=== PATIENT | female | born 1990 | race Caucasian/White ===

== ENCOUNTER 2017-12-09 12:27 | Emergency (ER) | payer MEDICAID, OTHER ==
[2017-12-09] MEDS ORDERED: CLEOCIN 150 MG CAPSULE PO ONE (12:35)
[2017-12-09] MEDS ORDERED: XYLOCAINE HCl Viscous MM ONE (12:37)
[2017-12-09] MEDS ORDERED: CLEOCIN 150 MG CAPSULE ONE (12:39)
[2017-12-09] MEDS ORDERED: XYLOCAINE HCl Viscous ONE (12:39)
--- NOTE | 2017-12-09 12:39 | ERPHSYRPT ---
- History of Present Illness Time Seen by Provider: 12/09/17 12:37 Source: patient Patient Subjective Stated Complaint: pt reports pain and swelling to left side of mouth-states she thinks she has an infected tooth Triage Nursing Assessment: pt pink warm and [id number] swelling noted- resp easy and nonlabored Physician History: mild to mod dental pain today, ache, constant throbbing, no fever, speech fluent , no injury, no drooling Allergies/Adverse Reactions: Sulfa (Sulfonamide Antibiotics) Allergy (Mild, Verified 12/09/17 12:36) Home Medications: Paroxetine HCl [Paxil] 15 mg PO DAILY 12/09/17 [History] Hx Tetanus, Diphtheria Vaccination/Date Given: No Hx Influenza Vaccination/Date Given: Yes Hx Pneumococcal Vaccination/Date Given: No Immunizations Up to Date: Yes - Review of Systems Constitutional: No Fever Eyes: No Eye Redness Ears, Nose, & Throat: No Throat Swelling Respiratory: No Dyspnea Abdominal/Gastrointestinal: No Vomiting Skin: No Rash Neurological: No Dizziness - Past Medical History Pertinent Past Medical History: Yes Psycho-Social History: Depression - Past Surgical History Past Surgical History: No - Social History Smoking Status: Current every day smoker How long have you smoked: yrs Exposure to second hand smoke: Yes Drug Use: none Patient Lives Alone: No - Female History Hx Last Menstrual Period: iud Hx Now: No - Nursing Vital Signs Nursing Vital Signs: Initial Vital Signs Temperature 97.9 F 12/09/17 12:32 Pulse Rate 77 12/09/17 12:32 Respiratory Rate 18 12/09/17 12:32 Blood Pressure 140/88 12/09/17 12:32 O2 Sat by Pulse Oximetry 97 12/09/17 12:32 Pain Scale Pain Intensity 7 - Physical Exam General Appearance: no apparent distress Eye Exam: eyes nml inspection Ears, Nose, Throat Exam: moist mucous membranes, other (tender lower left molar , no trismus, no fluc mass, +gingival erythema) Neck Exam: normal inspection, non-tender, supple, full range of motion, No meningismus Respiratory Exam: No respiratory distress Neurologic Exam: alert, oriented x 3, cooperative, normal mood/affect Skin Exam: warm, dry SpO2 Interpretation: normal SpO2: 97 Oxygen Delivery: Room Air - Course Nursing assessment & vital signs reviewed: Yes Ordered Tests: Medication Summary Discontinued Medications Generic Name Dose Route Start Last Admin Trade Name Freq PRN Reason Stop Dose Admin Clindamycin HCl 150 mg 12/09/17 12:35 12/09/17 12:40 Cleocin 150 Mg Capsule PO 12/09/17 12:36 150 mg STAT ONE Administration Clindamycin HCl Confirm 12/09/17 12:39 Cleocin 150 Mg Capsule Administered 12/09/17 12:40 Dose 150 mg .ROUTE .STK-MED ONE Lidocaine HCl 20 ml 12/09/17 12:37 12/09/17 12:40 Xylocaine Hcl Viscous * MM 12/09/17 12:38 20 ml PRN ONE Administration Lidocaine HCl Confirm 12/09/17 12:39 Xylocaine Hcl Viscous * Administered 12/09/17 12:40 Dose 20 ml .ROUTE .STK-MED ONE - Progress Progress: improved Progress Note: 12/09/17 12:56 see a dentist Counseled pt/family regarding: diagnosis, need for follow-up - Departure Time of Disposition: 12:57 Departure Disposition: Home Clinical Impression: Dental infection Condition: Stable Critical Care Time: No Referrals: PEGGY DUVAL MD [Primary Care Provider] - Instructions: Dental Pain (DC) Prescriptions: Clindamycin HCl [Cleocin HCl] 150 mg PO QID 7 Days #28 capsule Lidocaine HCl 2% Jelly [Xylocaine 2% JELLY] 0 ml DENTAL Q4-6HPRN PRN 4 Days #1 jel PRN Reason: Moderate To Severe Pain
[2017-12-09 13:21] VITALS: BP 132/60; PULSE 88; O2SAT 99
== END 2017-12-09 13:20 | disposition home or self-care (01) ==
LOC: ED 12:27
DX: K04.7 Periapical abscess without sinus (principal)
CPT/HCPCS: 99283; A9270-GY

== ENCOUNTER 2022-05-06 10:22 | Emergency (ER) | payer OTHER ==
[2022-05-06 11:07] VITALS: BP 149/55; PULSE 116; O2SAT 98
[2022-05-06 11:34] LABS: Basophil (Absolute #) 0.02 x10^3/uL (0-0.4); Eosinophil % 0.2 % (0.00-5.0); Eosinophil (Absolute #) 0.02 x10^3/uL (0-0.5); Hematocrit 40.4 % (35-47); Hemoglobin 13.2 g/dL (12.0-16.0); Lymphocyte (Absolute #) 1.03 x10^3/uL (1.0-4.6); Lymphocytes % 8.8 % (24.0-44.0); Mean Cell Volume 88.4 fL (78-100); Mean Corpuscular Hemoglobin 28.9 pg (26-32); Mean Corpuscular Hgb Concent. 32.7 g/dL (32-36); Mean Platelet Volume 8.7 fL (7.5-11.0); Monocyte (Absolute #) 0.51 x10^3/uL (0.0-1.3); Monocytes % 4.4 % (0.0-12.0); Neutrophil % 86.1 % (36.0-66.0); Platelet Count 413 x10^3/uL (150-450); Red Blood Count 4.57 x10^6/uL (4.1-5.4); Red Cell Distribution Width 12.6 % (11.5-14.0); White Blood Count 11.7 x10^3/uL (4.0-10.5)
--- NOTE | 2022-05-06 11:40 | XRAY ---
Indication: Erythema and swelling following fall. Comparison: None 3 nonweightbearing views left foot demonstrates tiny posterior/small plantar heel spurs and tiny cuboid accessory ossicles. No other bony, articular, or soft tissue abnormalities.
[2022-05-06] MEDS ORDERED: MOTRIN 600 MG PO ONE (12:26)
[2022-05-06] MEDS ORDERED: MOTRIN 600 MG ONE (12:26)
--- NOTE | 2022-05-06 12:29 | ERPHSYRPT ---
- History of Present Illness Time Seen by Provider: 05/06/22 11:05 Source: patient Exam Limitations: no limitations Patient Subjective Stated Complaint: pt here for pain to left foot for 2 weeks now she tripped and fell Triage Nursing Assessment: pt alert arrived per wc, resp easy, face mask in place, has swelling and redness to left foot, hot to touch Method of Injury: twisted Occurred: other (2 weeks ago) Quality: constant Severity of Pain-Max: moderate Severity of Pain-Current: moderate Lower Extremities Pain: foot: left Modifying Factors: Improves With: nothing Associated Symptoms: other (She has pain with weightbearing or palpation or movement) Allergies/Adverse Reactions: Sulfa (Sulfonamide Antibiotics) Allergy (Mild, Verified 12/09/17 12:36) Home Medications: PARoxetine HCL [Paxil] 15 mg PO DAILY 12/09/17 [History] Hx Tetanus, Diphtheria Vaccination/Date Given: No Hx Influenza Vaccination/Date Given: No Hx Pneumococcal Vaccination/Date Given: No Immunizations Up to Date: Yes Travel Risk - International Travel Have you traveled outside of the country in past 3 weeks: No - Coronavirus Screening Are you exhibiting any of the following symptoms?: No - Vaccine Status Have you recieved a Covid-19 vaccination: No - Review of Systems Constitutional: No Fever, No Chills Eyes: No Symptoms Ears, Nose, & Throat: No Symptoms Respiratory: No Cough, No Dyspnea Cardiac: No Chest Pain, No Edema, No Syncope Abdominal/Gastrointestinal: No Abdominal Pain, No Nausea, No Vomiting, No Diarrhea Genitourinary Symptoms: No Dysuria Musculoskeletal: Joint Redness, Joint Pain, Joint Swelling, No Back Pain, No Neck Pain Skin: No Rash Neurological: No Dizziness, No Focal Weakness, No Sensory Changes Psychological: No Symptoms Endocrine: No Symptoms All Other Systems: Reviewed and Negative - Past Medical History Pertinent Past Medical History: Yes Psycho-Social History: Depression - Past Surgical History Past Surgical History: No - Social History Smoking Status: Current every day smoker How long have you smoked: yrs Exposure to second hand smoke: Yes Drug Use: none Patient Lives Alone: No - Female History Hx Last Menstrual Period: unsure Hx Now: No - Nursing Vital Signs Nursing Vital Signs: Initial Vital Signs Temperature 97.1 F 05/06/22 11:00 Pulse Rate 116 H 05/06/22 11:00 Respiratory Rate 16 05/06/22 11:00 Blood Pressure 149/55 05/06/22 11:00 O2 Sat by Pulse Oximetry 98 05/06/22 11:00 Pain Scale Pain Intensity 8 - Physical Exam General Appearance: mild distress, alert Eyes, Ears, Nose, Throat Exam: moist mucous membranes Neck Exam: non-tender, supple Cardiovascular/Respiratory Exam: chest non-tender, normal breath sounds, regular rate/rhythm, no respiratory distress Gastrointestinal/Abdominal Exam: non-tender, guarding Back Exam: normal inspection, No vertebral tenderness Hips Exam: bilateral: non-tender, normal inspection, normal range of motion Legs Exam: bilateral leg: non-tender, normal inspection, normal range of motion Knees Exam: bilateral knee: non-tender, normal inspection, normal range of motion Ankle Exam: bilateral ankle: non-tender, normal inspection, normal range of motion Foot Exam: left foot: bone tenderness, limited range of motion, pain, soft tissue tenderness, swelling Neuro/Tendon Exam: normal sensation, normal motor functions Mental Status Exam: alert, oriented x 3, cooperative Skin Exam: normal color, warm, dry SpO2 Interpretation: normal SpO2: 98 O2 Delivery: Room Air - Course Nursing assessment & vital signs reviewed: Yes - Radiology Exams Left Foot X-ray Interpretation: Reviewed by me Ordered Tests: Active Orders 24 hr Category Date Time Status FOOT (MINIMUM 3 VIEWS) Stat Exams 05/06/22 11:20 Completed CBC W DIFF Stat Lab 05/06/22 11:25 Completed Uric Acid Stat Lab 05/06/22 11:25 Completed Lab/Rad Data: Laboratory Result Diagrams 05/06/22 11:25 Laboratory Results 05/06/22 05/06/22 Range/Units 11:25 11:25 WBC 11.7 H (4.0-10.5) x10^3/uL RBC 4.57 (4.1-5.4) x10^6/uL Hgb 13.2 (12.0-16.0) g/dL Hct 40.4 (35-47) % MCV 88.4 (78-100) fL MCH 28.9 (26-32) pg MCHC 32.7 (32-36) g/dL RDW 12.6 (11.5-14.0) % Plt Count 413 (150-450) x10^3/uL MPV 8.7 (7.5-11.0) fL Gran % 86.1 H (36.0-66.0) % Immature Gran % (Auto) 0.3 (0.00-0.4) % Nucleat RBC Rel Count 0.0 (0.00-0.1) % Eos # (Auto) 0.02 (0-0.5) x10^3/uL Immature Gran # (Auto) 0.04 H (0.00-0.03) x10^3u/L Absolute Lymphs (auto) 1.03 (1.0-4.6) x10^3/uL Absolute Monos (auto) 0.51 (0.0-1.3) x10^3/uL Absolute Nucleated RBC 0.00 (0.00-0.01) x10^3u/L Lymphocytes % 8.8 L (24.0-44.0) % Monocytes % 4.4 (0.0-12.0) % Eosinophils % 0.2 (0.00-5.0) % Basophils % 0.2 (0.0-0.4) % Absolute Granulocytes 10.10 H (1.4-6.9) x10^3/uL Basophils # 0.02 (0-0.4) x10^3/uL Uric Acid 4.1 (2.6-6.0) mg/dL - Progress Progress: unchanged - Departure Departure Disposition: Home Clinical Impression: Acute gouty arthritis Condition: Stable Critical Care Time: No Referrals: PEGGY DUVAL MD [Primary Care Provider] - Follow up/PCP as directed Instructions: Gout (DC) Prescriptions: Prednisone 10 mg [Deltasone 10 mg] 20 mg PO BID #12 tablet Diclofenac Sodium 50 mg [Voltaren 50 mg] 50 mg PO TID 10 Days #30 tablet
[2022-05-06] MEDS ORDERED: solu-MEDROL 125 MG, Sterile H2O 10 ml 2 ML IM ONE ×2 (12:30)
[2022-05-06] MEDS ORDERED: Sterile H2O 10 ml IJ ONE (12:35)
[2022-05-06] MEDS ORDERED: solu-MEDROL ONE (12:35)
== END 2022-05-06 13:00 | disposition home or self-care (01) ==
LOC: ED 10:22
DX: M10.9 Gout, unspecified (principal); M79.672 Pain in left foot; Z79.899 Other long term (current) drug therapy; Z28.310 Unvaccinated for COVID-19; Z72.0 Tobacco use; Z79.52 Long term (current) use of systemic steroids
CPT/HCPCS: 36415; 73630; 84550; 85025; 86140; 96372; 99283; J2930; A9270-GY

== ENCOUNTER 2024-03-26 06:58 | Emergency (ER) | payer OTHER ==
[2024-03-26 07:18] VITALS: TEMP 99.5
[2024-03-26] MEDS ORDERED: Sodium Chloride 0.9% 1000 ML 1,000 ML ONE (07:44)
[2024-03-26] MEDS ORDERED: TYLENOL 325 MG ONE (07:44)
[2024-03-26] MEDS ORDERED: ROCEPHIN 1 GM / 100 ML NaCl 1 GM/100 ML IVPB IV ONE (07:44)
[2024-03-26] MEDS: Sodium Chloride 0.9% 1000 ML 1,000 ML IV STA (07:45)
[2024-03-26] MEDS: TYLENOL 325 MG PO STA (07:45)
[2024-03-26] MEDS: ROCEPHIN 1 GM / 100 ML NaCl 1 GM/100 ML IVPB IV ONE (07:45)
[2024-03-26 08:02] LABS: Absolute Neutrophil Ct (ANC) 8.38 x10^3/uL (1.56-6.13); BASOPHIL % 0.3 % (0.1-1.2); Basophil (Absolute #) 0.03 x10^3/uL (0.01-0.08); Eosinophil % 3.5 % (0.7-5.8); Eosinophil (Absolute #) 0.32 x10^3/uL (0.04-0.36); Hematocrit 44.1 % (34.1-44.9); Hemoglobin 14.8 g/dL (11.2-15.7); IMMATURE GRAN # 0.05 x10^3u/L (0.001-0.031); IMMATURE GRAN % 0.5 % (0.001-0.429); Lymphocyte (Absolute #) 0.26 x10^3/uL (1.18-3.74); Lymphocytes % 2.8 % (19.3-51.7); Mean Cell Volume 88.2 fL (79.4-94.8); Mean Corpuscular Hemoglobin 29.6 pg (25.6-32.2); Mean Corpuscular Hgb Concent. 33.6 g/dL (32.2-35.5); Mean Platelet Volume 9.4 fL (9.4-12.3); Monocyte (Absolute #) 0.22 x10^3/uL (0.24-0.86); Monocytes % 2.4 % (4.7-12.5); Neutrophil % 90.5 % (34.0-71.1); Platelet Count 260 x10^3/uL (182-369); Red Cell Distribution Width 13.7 % (11.7-14.4); White Blood Count 9.3 x10^3/uL (3.98-10.04)
--- NOTE | 2024-03-26 08:08 | ERPHSYRPT ---
- History of Present Illness Time Seen by Provider: 03/26/24 08:03 Source: patient, EMS Exam Limitations: no limitations Patient Subjective Stated Complaint: pt states she has a spider bite on her rt upper arm/axilla since yesterday. states she has also been having vaginal pain and is concerned that her iud has become displaced, has had pain for last 2 days. Triage Nursing Assessment: pt alert and oriented, answers questions approp. pt arrive per ambulance and transfers to stretcher per self with steady gait noted. respirations nonlabored. skin warm and dry. area of redness and warmth approx 12x8cm. no open areas. Physician History: Patient is a 33-year-old female without any significant past medical history cam e to the emergency room via ambulance with complaining of fever chills since yesterday. Patient also stated that she has a spider bite on her right upper arm and axilla yesterday and since then she started having complaining of not feeling well fever chills and complaining of malaise. Patient also felt that she might have some problem with her IUD which was put on to 3 weeks ago and she felt like it has slipped down. In the emergency room's show she is alert awake oriented to time place and person answer all the questions. Initially in ambulance her temperature was 101 in the emergency room it was 99 F. Patient pulse rate was in 100-110 range. Patient denies any nausea vomiting blood in the stool or urine headache Timing/Duration: yesterday Severity: moderate Associated Symptoms: chills, fever, malaise, weakness Allergies/Adverse Reactions: Sulfa (Sulfonamide Antibiotics) Allergy (Mild, Verified 03/26/24 07:17) Home Medications: Fluoxetine HCl [Prozac] 40 mg PO DAILY 03/26/24 [History] Hx Tetanus, Diphtheria Vaccination/Date Given: No Hx Influenza Vaccination/Date Given: No Hx Pneumococcal Vaccination/Date Given: No Immunizations Up to Date: No Travel Risk - International Travel Have you traveled outside of the country in past 3 weeks: No - Emerging Infectious Disease Are you exhibiting symptoms associated with any current EIDs: No - Review of Systems Constitutional: Fever, Chills, Lethargy, Malaise Eyes: No Symptoms Ears, Nose, & Throat: No Symptoms Respiratory: No Cough, No Dyspnea Cardiac: No Chest Pain, No Edema, No Syncope Abdominal/Gastrointestinal: No Abdominal Pain, No Nausea, No Vomiting, No Diarrhea Genitourinary Symptoms: No Dysuria Musculoskeletal: No Back Pain, No Neck Pain Skin: Cellulitis (right arm near axilla), No Rash Neurological: No Dizziness, No Focal Weakness, No Sensory Changes Psychological: No Symptoms Endocrine: No Symptoms All Other Systems: Reviewed and Negative - Past Medical History Pertinent Past Medical History: Yes Psycho-Social History: Depression Other Medical History: gout lt foot - Past Surgical History Past Surgical History: No Other Surgical History: mirena replacement [address] morales - Female History Hx Last Menstrual Period: mirena iud- no periods with Hx Now: No - Social History Smoking Status: Former smoker How long have you smoked: yrs Exposure to second hand smoke: Yes Drug Use: none Patient Lives Alone: No - Social Determinants of Health Do you worry about a steady place to live?: No Do you have any problems with any of the following?: No known problems In the past 12 months,have you had to go without utilities?: No Transportation Issues: No Has anyone in your support network made you feel unsafe?: No Have you or anyone in your house had to go without enough: No - Nursing Vital Signs Nursing Vital Signs: Initial Vital Signs Pulse Rate 103 H 03/26/24 07:02 Respiratory Rate 16 03/26/24 07:02 Blood Pressure 114/79 03/26/24 07:02 O2 Sat by Pulse Oximetry 97 03/26/24 07:02 Pain Scale Pain Intensity 4 - Physical Exam General Appearance: mild distress, alert Eye Exam: PERRL/EOMI, eyes nml inspection Ears, Nose, Throat Exam: normal ENT inspection, TMs normal, pharynx normal, moist mucous membranes Neck Exam: normal inspection, non-tender, supple, full range of motion Respiratory Exam: normal breath sounds, lungs clear, No respiratory distress Cardiovascular Exam: regular rate/rhythm, normal heart sounds, normal peripheral pulses Gastrointestinal/Abdomen Exam: soft, normal bowel sounds, No tenderness, No mass Pelvic Exam: normal external exam, adnexal tenderness, cervical motion tenderness, uterine tenderness, No adnexal mass, No mass, No vaginal bleeding, No vaginal discharge Rectal Exam: deferred Back Exam: normal inspection, normal range of motion, No CVA tenderness, No vertebral tenderness Extremity Exam: normal inspection, normal range of motion, pelvis stable Neurologic Exam: alert, oriented x 3, cooperative, normal mood/affect, nml cerebellar function, nml station & gait, sensation nml, No motor deficits Skin Exam: normal color, warm, dry, No rash Lymphatic Exam: No adenopathy SpO2 Interpretation: normal SpO2: 97 O2 Delivery: Room Air - Course Nursing assessment & vital signs reviewed: Yes Rhythm Strip: Sinus Tachycardia - Radiology Exams Chest X-ray Interpretation: Interpreted by me, Reviewed by me, Negative, No Pneumonia Ordered Tests: Active Orders 24 hr Category Date Time Status Airways Control Specialist STAT Care 03/26/24 07:32 Active EKG-ER Only STAT Care 03/26/24 08:02 Active IV Insertion STAT Care 03/26/24 07:32 Active Pulse Oximetry (ED) STAT Care 03/26/24 07:32 Active CHEST 2 VIEWS (PA AND LAT) Stat Exams 03/26/24 08:22 Taken BLOOD CULTURE Stat Lab 03/26/24 07:56 Received CBC W DIFF Stat Lab 03/26/24 07:20 Completed CMP Stat Lab 03/26/24 07:20 Completed CULTURE,URINE Stat Lab 03/26/24 09:29 Received Lactic Acid Stat Lab 03/26/24 07:32 Completed PROCALCITONIN Stat Lab 03/26/24 07:20 Completed UA W/RFX UR CULTURE Stat Lab 03/26/24 09:29 Completed Medication Summary Discontinued Medications Generic Name Dose Route Start Last Admin Trade Name Jefferyq PRN Reason Stop Dose Admin Acetaminophen 975 mg 03/26/24 07:32 03/26/24 07:45 Acetaminophen 325 Mg Tablet PO 03/26/24 07:33 975 mg STAT STA Administration Acetaminophen Confirm 03/26/24 07:44 Acetaminophen 325 Mg Tablet Administered 03/26/24 07:45 Dose 975 mg .ROUTE .STK-MED ONE Sodium Chloride 1,000 mls @ 999 mls/hr 03/26/24 07:32 03/26/24 08:49 Sodium Chloride 0.9% 1000 Ml IV 03/26/24 08:32 Infused .Q1H1M STA Infusion Ceftriaxone Sodium 1 gm in 100 mls @ 200 mls/hr 03/26/24 07:32 03/26/24 08:17 Rocephin 1 Gm / 100 Ml Nacl IV 03/26/24 08:01 Infused STAT ONE Infusion Sodium Chloride Confirm 03/26/24 07:44 Sodium Chloride 0.9% 1000 Ml Administered 03/26/24 07:45 Dose 1,000 mls @ ud .ROUTE .STK-MED ONE Ceftriaxone Sodium Confirm 03/26/24 07:44 Rocephin 1 Gm / 100 Ml Nacl Administered 03/26/24 07:45 Dose 1 gm in 100 mls @ ud IV .STK-MED ONE Lab/Rad Data: Laboratory Result Diagrams 03/26/24 07:20 03/26/24 07:20 Laboratory Results 03/26/24 03/26/24 03/26/24 Range/Units 09:29 08:40 07:32 WBC (3.98-10.04) x10^3/uL RBC (3.93-5.22) x10^6/uL Hgb (11.2-15.7) g/dL Hct (34.1-44.9) % MCV (79.4-94.8) fL MCH (25.6-32.2) pg MCHC (32.2-35.5) g/dL RDW (11.7-14.4) % Plt Count (182-369) x10^3/uL MPV (9.4-12.3) fL Gran % (34.0-71.1) % Immature Gran % (Auto) (0.001-0.429) % Nucleat RBC Rel Count (0.00-0.2) % Eos # (Auto) (0.04-0.36) x10^3/uL Immature Gran # (Auto) (0.001-0.031) x10^3u/L Absolute Lymphs (auto) (1.18-3.74) x10^3/uL Absolute Monos (auto) (0.24-0.86) x10^3/uL Absolute Nucleated RBC (0.00-0.012) x10^3u/L Lymphocytes % (19.3-51.7) % Monocytes % (4.7-12.5) % Eosinophils % (0.7-5.8) % Basophils % (0.1-1.2) % Absolute Granulocytes (1.56-6.13) x10^3/uL Basophils # (0.01-0.08) x10^3/uL Sodium (135-145) mmol/L Potassium (3.5-5.1) mmol/L Chloride (98-107) mmol/L Carbon Dioxide (22-30) mmol/L Anion Gap (5-15) MEQ/L BUN (7-17) mg/dL Creatinine (0.52-1.04) mg/dL Estimated GFR ML/MIN Glucose (74-106) mg/dL Lactic Acid 2.7 H (0.4-2.0) Calcium (8.4-10.2) mg/dL Total Bilirubin (0.2-1.3) mg/dL AST (14-36) U/L ALT (0-35) U/L Alkaline Phosphatase (38-126) U/L Serum Total Protein (6.3-8.2) g/dL Albumin (3.5-5.0) g/dL Procalcitonin (0.030-0.080) ng/mL Urine Color Dark Yellow A (Yellow) Urine Appearance Cloudy A (Clear) Urine pH 5.5 (4.6-8.0) Ur Specific [place] 1.020 (1.005-1.030) Urine Protein 30 (Negative) Urine Glucose (UA) Negative (Negative) mg/dL Urine Ketones Negative (Negative) Urine Blood Negative (Negative) Urine Nitrite Positive A (Negative) Urine Bilirubin Small A (Negative) Urine Urobilinogen 1.0 A (0.2) mg/dL Ur Leukocyte Esterase Small A (Negative) U Hyaline Cast (Auto) None Seen (0-2) /LPF Urine Microscopic RBC 6-10 A (0-5) /HPF Urine Microscopic WBC 3-5 (0-5) /HPF Ur Epithelial Cells Few (None Seen) /HPF Urine Bacteria None Seen (None Seen) /HPF Urine Mucus Moderate A (NEGATIVE) /HPF Urine Culture Reflexed YES (NO) Influenza Type A Ag NEGATIVE (NEGATIVE) Influenza Type B Ag NEGATIVE (NEGATIVE) RSV (PCR) NEGATIVE (NEGATIVE) SARS-CoV-2 (PCR) NEGATIVE (NEGATIVE) 03/26/24 03/26/24 03/26/24 Range/Units 07:20 07:20 07:20 WBC 9.3 (3.98-10.04) x10^3/uL RBC 5.00 (3.93-5.22) x10^6/uL Hgb 14.8 (11.2-15.7) g/dL Hct 44.1 (34.1-44.9) % MCV 88.2 (79.4-94.8) fL MCH 29.6 (25.6-32.2) pg MCHC 33.6 (32.2-35.5) g/dL RDW 13.7 (11.7-14.4) % Plt Count 260 (182-369) x10^3/uL MPV 9.4 (9.4-12.3) fL Gran % 90.5 H (34.0-71.1) % Immature Gran % (Auto) 0.5 H (0.001-0.429) % Nucleat RBC Rel Count 0.0 (0.00-0.2) % Eos # (Auto) 0.32 (0.04-0.36) x10^3/uL Immature Gran # (Auto) 0.05 H (0.001-0.031) x10^3u/L Absolute Lymphs (auto) 0.26 L (1.18-3.74) x10^3/uL Absolute Monos (auto) 0.22 L (0.24-0.86) x10^3/uL Absolute Nucleated RBC 0.00 (0.00-0.012) x10^3u/L Lymphocytes % 2.8 L (19.3-51.7) % Monocytes % 2.4 L (4.7-12.5) % Eosinophils % 3.5 (0.7-5.8) % Basophils % 0.3 (0.1-1.2) % Absolute Granulocytes 8.38 H (1.56-6.13) x10^3/uL Basophils # 0.03 (0.01-0.08) x10^3/uL Sodium 134 L (135-145) mmol/L Potassium 3.4 L (3.5-5.1) mmol/L Chloride 101 (98-107) mmol/L Carbon Dioxide 20 L (22-30) mmol/L Anion Gap 16.4 H (5-15) MEQ/L BUN 10 (7-17) mg/dL Creatinine 0.86 (0.52-1.04) mg/dL Estimated GFR 90.3 ML/MIN Glucose 140 H (74-106) mg/dL Lactic Acid (0.4-2.0) Calcium 9.2 (8.4-10.2) mg/dL Total Bilirubin 0.50 (0.2-1.3) mg/dL AST 30 (14-36) U/L ALT 26 (0-35) U/L Alkaline Phosphatase 65 (38-126) U/L Serum Total Protein 7.6 (6.3-8.2) g/dL Albumin 4.1 (3.5-5.0) g/dL Procalcitonin 0.239 H (0.030-0.080) ng/mL Urine Color (Yellow) Urine Appearance (Clear) Urine pH (4.6-8.0) Ur Specific [place] (1.005-1.030) Urine Protein (Negative) Urine Glucose (UA) (Negative) mg/dL Urine Ketones (Negative) Urine Blood (Negative) Urine Nitrite (Negative) Urine Bilirubin (Negative) Urine Urobilinogen (0.2) mg/dL Ur Leukocyte Esterase (Negative) U Hyaline Cast (Auto) (0-2) /LPF Urine Microscopic RBC (0-5) /HPF Urine Microscopic WBC (0-5) /HPF Ur Epithelial Cells (None Seen) /HPF Urine Bacteria (None Seen) /HPF Urine Mucus (NEGATIVE) /HPF Urine Culture Reflexed (NO) Influenza Type A Ag (NEGATIVE) Influenza Type B Ag (NEGATIVE) RSV (PCR) (NEGATIVE) SARS-CoV-2 (PCR) (NEGATIVE) - Progress Progress: improved Counseled pt/family regarding: lab results, diagnosis, need for follow-up, rad results Medical Desision Making - Independent Historian Additional History obtained from: Family - Diagnostic Testing Diagnostic test were ordered, analyzed, and reviewed by me: Yes Radiological Interpretation: Interpreted by me, Reviewed by me - Risk of complications Low Risk: Low risk of morbidity from additional dx testing or treatment - Departure Departure Disposition: Home Clinical Impression: Cellulitis and abscess of upper arm and forearm, UTI (urinary tract infection) due to Enterococcus IUD mechanical complication Qualifiers: Mechanical complication type: displacement Encounter type: initial encounter Qualified Code(s): T83.32XA - Displacement of intrauterine contraceptive device, initial encounter Condition: Stable Critical Care Time: No Referrals: PEGGY DUVAL MD [Primary Care Provider] - Follow up/PCP as directed Instructions: Insect Bites and Stings (DC), Intrauterine devices (IUDs), Cellulitis (skin infection) in adults - Discharge instructions Additional Instructions: Discharge/Care Plan JUDSON CHASE was seen on 03/26/24 in the Emergency Room. The patient was counseled regarding Diagnosis,Lab results, Imaging studies, need for follow up and when to return to the Emergency Room. Prescriptions given: Discharge Note I have spoken with the patient and/or caregivers. I have explained the patient's condition, diagnosis and treatment plan based on the information available to me at this time. I have answered the patient's and/or caregiver's questions and addressed any concerns. The patient and/or caregivers have as good understanding of the patient's diagnosis, condition and treatment plan as can be expected at this point. The vital signs have been stable. The patient's condition is stable and appropriate for discharge from the emergency department. The patient will pursue further outpatient evaluation with the primary care physician or other designated or consulting physician as outlined in the disc harge instructions. The patient and/or caregivers are agreeable to this plan of care and follow-up instructions have been explained in detail. The patient and/or caregivers have received these instruction. The patient/and or caregivers are aware that any significant change in condition or worsening of symptoms should prompt an immediate return to this or the closest emergency department or call 911. JUDSON CHASE was seen on 03/26/24 n the Emergency Room. At that time you were treated for an emergent condition, during your visit Laboratory, Radiology and/or other procedures may have been ordered. It is very important that you follow-up with your Primary Care Physician PEGGY DUVAL within the next 24-48 hours to review your Emergency Room visit and the final results of testing that was ordered. Some test results such as Urine Cultures, Blood Cultures, and other cultures if ordered will not be finalized for 24-48 hours. If you do not have a Primary Care Provider please call the medical records department at [phone] ext [phone] to obtain a copy of your results or you may sign into our patient portal to obtain these results by visiting us @ [email or web address] and completing the following steps: 1. Click on the Patient Portal link 2. Click the Patient Self Enrollment Link to complete the enrollment form and entering your 3. Once the enrollment form is completed you will receive an email with a temporary ID and password at the email address you provided. 4. Next choose a user name and password. Your user name must be at least 4 characters long and your password must be at least 4 characters long. 5. Choose a security question from the list and provide your answer to the question. If you already have signed into the Health Portal you may access your Health Care Information 21/12 by the following steps: 1. Login to our website @ [email or web address] 2. Enter your original user name and password. FAQS The [facility] Health Portal is an online tool that contains your Lab Results, Radiology Reports, Visit History, Discharge Instructions and Health Summary Lab and Radiology Results will not be available for 72 hours on the portal. The Portal is a secure site, passwords are encryted and URLs are re-written so they cannot be copied and pasted. You and authorized family members are the only ones who can access your Portal. Also there is a timeout feature that protects your information if you leave the Portal page open. If you have technical difficulty please use the Contact Us link on the page this will allow you to submit any questions you have regarding the Portal or you may contact the Medical Record Department at [phone]. Prescriptions: Cefdinir 300 mg PO BID #15 cap
[2024-03-26 08:14] LABS: ALBUMIN 4.1 g/dL (3.5-5.0); ANION GAP 16.4 MEQ/L (5-15); BILIRUBIN,TOTAL 0.5 mg/dL (0.2-1.3); Calcium 9.2 mg/dL (8.4-10.2); Creatinine 1 0.86 mg/dL (0.52-1.04); EST GLOMERULAR FILTRATION RATE 90.3 ML/MIN; Potassium 3.4 mmol/L (3.5-5.1); Total Protein 7.6 g/dL (6.3-8.2)
[2024-03-26 09:19] LABS: INFLUENZA A NEGATIVE (NEGATIVE); INFLUENZA B NEGATIVE (NEGATIVE); RESPIRATORY SYNCTIAL VIRUS NEGATIVE (NEGATIVE); SARS-CoV-2 Xpert Express NEGATIVE (NEGATIVE)
[2024-03-26 09:44] LABS: Appearance Cloudy (Clear); Bacteria None Seen /HPF (None Seen); Bilirubin Small (Negative); Blood Negative (Negative); Epithelial Cells Few /HPF (None Seen); Glucose, Urine Negative (Negative); Ketones Negative (Negative); Leukocyte Esterase Small (Negative); Nitrite Positive (Negative); Ph 5.5 (4.6-8.0); Protein,Urine Dip 30 (Negative)
[2024-03-26 09:48] LABS: Hyaline Casts None Seen /LPF (0-2); Mucus Moderate /HPF (NEGATIVE)
[2024-03-26 10:01] VITALS: BP 93/61; PULSE 86; RESP 17
[2024-03-26 10:02] VITALS: O2SAT 97
--- NOTE | 2024-03-26 18:30 | XRAY ---
Indication: Fever and chills. Comparison: None PA/lateral chest demonstrates normal heart and lungs. Bony thorax intact with minimal dextroscoliosis.
== END 2024-03-26 10:20 | disposition home or self-care (01) ==
LOC: ED 06:58
DX: L02.413 Cutaneous abscess of right upper limb (principal); L03.113 Cellulitis of right upper limb; N39.0 Urinary tract infection, site not specified; B95.2 Enterococcus as the cause of diseases classified elsewhere; T83.32XA Displacement of intrauterine contraceptive device, initial encounter; R50.9 Fever, unspecified; Z79.899 Other long term (current) drug therapy
CPT/HCPCS: 0241U; 36000; 36415; 71046; 80053; 81001; 83605; 84145; 85025; 87040; 87077; 87086; 87186; 93005; 93041; 94760; 96360; 96365; 99284; J0696; A9270-GY